=== PATIENT | male | born 1945 | race Caucasian/White ===

== ENCOUNTER 2019-10-12 19:54 | Emergency (ER) | payer OTHER ==
[~2019-10-12] VITALS: Ht 172.7 cm; Wt 64.0 kg
[~2019-10-12 19:54] MED LIST: ASPIR 8181 MG PO; CARAFATE 1 GM TA1 G1 PO; CIPRO500 MG PO; FLAGYL500 MG PO; PROTONIX40 M1 PO; TOPROL XL100 MG PO
[2019-10-12 20:49] LABS: URINE BILIRUBIN NEGATIVE (Negative); URINE BLOOD 3+ (Negative); URINE CLARITY SL CLOUDY; URINE COLOR YELLOW; URINE GLUCOSE-RANDOM NEGATIVE (Negative); URINE KETONES NEGATIVE (Negative); URINE LEUKOCYTES-REFLEX 1+ (Negative); URINE NITRITE-REFLEX NEGATIVE (Negative); URINE PROTEIN TRACE (Negative); URINE UROBILINOGEN 0.2 E.U./dl (0.2-1.0)
[2019-10-12 20:56] LABS: CASTS None Seen /LPF (None Seen); SQUAMOUS 0-3 Few /LPF (0-3); URINE WBC-REFLEX 6-15 Few /HPF (0-5)
[2019-10-12 20:57] LABS: AMORPHOUS URATES Few /LPF (None Seen)
[2019-10-12 21:03] VITALS: BP 126/74
== END 2019-10-12 21:03 | disposition home or self-care (01) ==
LOC: M.ERS 19:54
PROVIDERS: Family Medicine
DX: R33.9 Retention of urine, unspecified (principal); I10 Essential (primary) hypertension; Z85.89 Personal history of malignant neoplasm of other organs and systems

== ENCOUNTER 2019-11-11 15:57 | Inpatient (IN) | payer OTHER ==
[~2019-11-11] VITALS: Ht 167.6 cm; Wt 64.5 kg
--- NOTE | ~2019-11-11 | EKG ---
[place] [address] ELECTROCARDIOGRAM REPORT Name: SMITARUPESH April Room: [address] ADM [place] R.#: [id number] Admission: 11/11/19 Attend Phys: Felipe Allen Discharge: Date of : 45 Date of Service: 11/11/19 1639 Report #: [id number] THIS REPORT FOR: cc: Wilian Fitch MD, Jonathan MD Epiphany, Epiphany MD ~ THIS REPORT FOR: //name// [facility] ED Test Date: 2019-11-11 Test Time: 16:39:34 Pat Name: RUPESH ORDOÑEZ Department: Room: [facility] Gender: M [employer] Helper: DAIANA : 1945 Requested By: Emiliano Quick Order Number: [id number] MD: Measurements Intervals [place] Rate: 73 P: 0 ND: 240 QRS: -13 QRSD: 100 T: -2 QT: 415 QTc: 458 Interpretive Statements Sinus rhythm Prolonged ND interval Probable anteroseptal infarct, old Compared to ECG 03/14/2015 10:07:20 First degree AV block now present Myocardial infarct finding now present Possible ischemia no longer present [email or web address] By: [id number] Epiphany EpiphanyMD /KIMBERLYN
[2019-11-11 02:10] VITALS: BP 86/61
[2019-11-11 16:25] VITALS: BP 80/31
[2019-11-11 17:09] LABS: ABSOLUTE LYMPHOCYTES 0.8 thou/uL (0.8-5.3); ABSOLUTE MONOCYTES 1.3 thou/uL (0.0-1.2); ABSOLUTE NEUTROPHILS 7.5 thou/uL (1.6-8.1); BASOPHILS 0.5 %; HEMATOCRIT 32.6 % (42.0-52.0); HEMOGLOBIN 11.4 gm/dL (14.0-18.0); LYMPHOCYTES 8.4 %; MCH 28.7 pg (26.0-34.0); MCHC 34.9 g/dL (28.0-37.0); MCV 82.4 fL (80.0-100.0); MONOCYTES 13.4 %; MPV 7.1 fl. (7.2-11.1); NUCLEATED RBCS 0 /100WBC; PLATELET COUNT* 217 thou/uL (150-400); POLYS 77.7 %; RBC 3.96 mil/uL (4.50-6.00); RDW-CV 14.1 % (10.5-14.5); WBC 9.6 thou/uL (4.0-11.0)
[2019-11-11 17:18] LABS: CREATININE 1.1 mg/dL (0.6-1.3); POTASSIUM 4.5 mmol/L (3.5-5.1)
[2019-11-11 17:22] LABS: ALBUMIN 3.2 g/dL (3.4-5.0); TOTAL BILIRUBIN 0.7 mg/dL (<0.1-1.0); TOTAL PROTEIN 7.5 g/dL (6.4-8.2)
[2019-11-11 17:57] LABS: INFLUENZA A ANTIGEN Negative (Negative); INFLUENZA B ANTIGEN Negative (Negative)
[2019-11-11 18:05] LABS: BE -3.1 mmol/L (-2 to +3); PCO2 34.1 mmHg (35.0-45.0); pH 7.407 (7.340-7.450)
[2019-11-11 19:29] LABS: URINE BILIRUBIN NEGATIVE (Negative); URINE BLOOD 1+ (Negative); URINE CLARITY CLEAR; URINE COLOR YELLOW; URINE GLUCOSE-RANDOM NEGATIVE (Negative); URINE KETONES NEGATIVE (Negative); URINE LEUKOCYTES-REFLEX TRACE (Negative); URINE PROTEIN NEGATIVE (Negative); URINE SPECIFIC GRAVITY <= 1.005 (1.005-1.030); URINE UROBILINOGEN 0.2 E.U./dl (0.2-1.0)
[2019-11-11 19:32] LABS: URINE NITRITE-REFLEX POSITIVE (Negative)
[2019-11-11 19:35] LABS: SQUAMOUS 0-3 Few /LPF (0-3); URINE RBC 0-2 Rare /HPF (0-2); URINE WBC-REFLEX 6-15 Few /HPF (0-5)
[2019-11-11 19:36] LABS: BACTERIA-REFLEX 1-9 Few /HPF (None Seen); CASTS None Seen /LPF (None Seen); CRYSTALS None Seen /LPF (None Seen)
[2019-11-11 20:00] VITALS: BP 119/64
[2019-11-11 20:30] VITALS: BP 100/63
[2019-11-11 23:45] VITALS: BP 82/52
[2019-11-11 23:48] VITALS: BP 73/51
[2019-11-12] VITALS (10 sets, daily range): BP systolic 72–119; BP diastolic 51–85
[2019-11-12 09:50] LABS: CREATININE 1.1 mg/dL (0.6-1.3); POTASSIUM 3.6 mmol/L (3.5-5.1)
--- NOTE | 2019-11-12 15:21 | 2DMMODE ---
[place] [address] 2 D/M-MODE ECHOCARDIOGRAM Name: RUPESH ORDOÑEZ Room: [address] ADM [place] M.R.#: [id number] Admission: 11/11/19 Attend Phys: Felipe Allen Discharge: Date of : 45 Date of Service: 11/12/19 1520 Report #: [id number] THIS REPORT FOR: cc: Wilian Fitch MD, Jonathan MD Blick,Nasir Eisenberg MD [facility] ~ THIS REPORT FOR: //name// APPROVED REPORT Study performed: 11/12/2019 10:40:21 EXAM: Comprehensive 2D, Doppler, and color-flow Echocardiogram Patient Location: Bedside BSA: 1.72 HR: 70 bpm BP: 105/78 mmHg Other Information Study Quality: Good Indications Cardiomegaly 2D Dimensions IVSd: 12.99 (7-11mm) LVOT Diam: 20.40 (18-24mm) LVDd: 40.22 mm PWd: 11.34 (7-11mm) Ascending Ao: 33.78 (22-36mm) LVDs: 31.61 (25-40mm) Aortic Root: 26.49 mm Volumes Left Atrial Volume (Systole) LA ESV Index: 31.60 mL/m2 Aortic Valve AoV Peak Torrey.: 1.14 m/s AO Peak Gr.: 5.23 mmHg LVOT Max P.56 mmHg AO Mean Gr.: 2.65 mmHg LVOT Mean P.34 mmHg LVOT Max V: 1.18 m/s AO V2 VTI: 23.69 cm LVOT Mean V: 0.69 m/s [place] (VTI): 3.73 cm2 LVOT V1 VTI: 27.03 cm AI [place]: 1.94 m/s2 [place] [address] 2 D/M-MODE ECHOCARDIOGRAM Name: RUPESH ORDOÑEZ Room: [address] IN .R.#: [id number] Admission: 11/11/19 Attend Phys: Felipe Allen Discharge: Date of : 45 Date of Service: 11/12/19 1520 Report #: [id number] AI PHT: 595.61 ms Mitral Valve E/A Ratio: 0.98 MV Decel. Time: 232.06 ms MV E Max Torrey.: 0.82 m/s MV PHT: 67.30 ms MVA (PHT): 3.27 cm2 TDI E/Lateral E': 9.11 E/Medial E': 13.67 Medial E' Torrey.: 0.06 m/s Lateral E' Torrey.: 0.09 m/s Pulmonary Valve PV Peak Torrey.: 0.77 m/s PV Peak Gr.: 2.40 mmHg Tricuspid Valve RAP Estimate: 5.00 mmHg TR Peak Gr.: 30.52 mmHg RVSP: 35.52 mmHg PA Pressure: 35.52 mmHg Left Ventricle The left ventricle is normal size. There is normal LV segmental wall motion. Mild concentric left ventricular hypertrophy. Left ventricular systolic function is normal. The left ventricular ejection fraction is within the normal range. LVEF is 55-60%. Grade I - abnormal relaxation pattern. Right Ventricle The right ventricle is normal size. The right ventricular systolic function is normal. Atria Left atrium is mildly dilated. The right atrium size is normal. Aortic Valve The Aortic valve is sclerotic. Trace aortic regurgitation. There is no aortic valvular stenosis. Mitral Valve The mitral valve is normal in structure. There is trace mitral valve regurgitation noted. No evidence of mitral valve stenosis. [place] [address] 2 D/M-MODE ECHOCARDIOGRAM Name: RUPESH ORDOÑEZ Room: [address] IN [facility]#: [id number] Admission: 11/11/19 Attend Phys: Felipe Allen Discharge: Date of : 45 Date of Service: 11/12/19 1520 Report #: [id number] The tricuspid valve is normal in structure. Mild tricuspid regurgitation. Pulmonic Valve The pulmonary valve is normal in structure. Trace pulmonic regurgitation. Great Vessels The aortic root is normal in size. IVC is normal in size and collapses >50% with inspiration. Pericardium There is no pericardial effusion. <Conclusion> Mild concentric left ventricular hypertrophy. LVEF is 55-60%. Left atrium is mildly dilated. <ELECTRONICALLY SIGNED> By: Nasir Vaughn MD, FACC 11/12/19 1520 1520 1520 Nasir Vaughn MD, FACC /INF
[2019-11-13] VITALS: BP 115/74
[2019-11-13 05:07] LABS: CALCIUM 8.1 mg/dL (8.5-10.1); CREATININE 0.8 mg/dL (0.6-1.3); POTASSIUM 4.3 mmol/L (3.5-5.1)
[2019-11-13 08:00] VITALS: BP 134/96
[2019-11-13] MEDS ORDERED: PREDNISONE 20 M20 M1 PO (12:36)
[2019-11-13] MEDS ORDERED: DOXYCYCLINE 10100 M2 PO (12:36)
[2019-11-13 13:09] VITALS: BP 134/96
== END 2019-11-13 13:43 | disposition home or self-care (01) | DRG 177 ==
LOC: M.ERS 15:57 → M.TBA-ER 18:12 → M.2W 18:12
PROVIDERS: Emergency Medicine; Emergency Medicine Emergency Medical Services; Internal Medicine; ADMIT Internal Medicine
DX: J15.6 Pneumonia due to other Gram-negative bacteria (principal); J96.01 Acute respiratory failure with hypoxia; E87.1 Hypo-osmolality and hyponatremia; R65.10 Systemic inflammatory response syndrome (SIRS) of non-infectious origin without acute organ dysfunction; I51.7 Cardiomegaly; I10 Essential (primary) hypertension; N40.0 Benign prostatic hyperplasia without lower urinary tract symptoms; J40 Bronchitis, not specified as acute or chronic; Z79.82 Long term (current) use of aspirin; Z79.899 Other long term (current) drug therapy; Z87.891 Personal history of nicotine dependence; Z85.89 Personal history of malignant neoplasm of other organs and systems